=== PATIENT | male | born 1965 | race Caucasian/White ===

== ENCOUNTER → 2016-10-27 | Outpatient (CLI) | payer OTHER | LOC: BMCIMAGING 15:34 | PROVIDERS: ATTEND Emergency Medicine | DX: M79.662 Pain in left lower leg (principal) ==

== ENCOUNTER 2017-01-23 12:49 | Emergency (ER) | payer OTHER ==
[2017-01-23 13:00] VITALS: RESP 18; TEMP 98.1
[2017-01-23] MEDS ORDERED: TDAP ADULT 0.5 ML INJ (BOOSTRIX) IM ONE (13:13)
--- NOTE | 2017-01-23 13:30 | EDPHY ---
General Narrative: CHIEF COMPLAINT: Forehead laceration HISTORY OF PRESENT ILLNESS: Patient complains of laceration to the forehead. He sustained this at 10:45 a.m. this morning. He was exercising when he leaned forward and struck his head on the end of the barbell. He sustained a laceration but no loss of conscious. He has a mild headache. No nausea. No vomiting. No changes in vision. No neck pain or stiffness. He 1st went to an urgent care and they sent him to our facility for higher level of care. Headache is described as mild. No use of anticoagulants. No other associated complaints or modifying factors REVIEW OF SYSTEMS: Ten systems reviewed and are negative unless otherwise noted in the HPI PAST MEDICAL HISTORY: None PAST SURGICAL HISTORY: Right knee arthroplasty SOCIAL HISTORY: Nonsmoker. No alcohol. Lives in [place]. 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 3 cm laceration on the forehead at the started the hairline. No active bleeding. No Ellis sign. No raccoon eyes. No hematoma or depression Eyes: Pupils equal and round, no conjunctival pallor or injection. EOMs intact ENT, Mouth: Mucous membranes moist. Airway patent Neck: Normal inspection, supple, non-tender Respiratory: Lungs are clear. No retractions or distress Cardiovascular: Regular rate. Pulses intact distally symmetrically Neurological: GCS 15. A&O, nonfocal, normal gait. Strength is symmetric in all 4 limbs. No pronator drift. No dysmetria. Full control and movement of the eyebrows and forehead. Skin: Warm and dry, no rash. 3 cm laceration to the forehead. This is just at the start of the hairline. No foreign body. No pulsatile blood flow. Extremities: Nontender, no pedal edema. Symmetric range of motion Psychiatric: Mood and affect normal DIFFERENTIAL DIAGNOSES: Including but not limited to for laceration, closed head injury, concussion, contusion, hematoma, intracranial hemorrhage MDM: 1:25 p.m. For laceration without any indication for CT scan of the head based on [place] CT head rules. He is awake alert no acute distress. Neuro exam is within normal limits. I have anesthetize the wound. Proceed with irrigation and closure. Tetanus will need to be updated here. 1:50 p.m. Laceration has been suture repaired. Movement of the eyebrow retain. Uncomplicated suture with no indication for CT scan. Wound care discussed. Follow up here in 5-7 days for suture removal. PROCEDURE: Laceration repair Consent: Verbal Location: Forehead Length of repair: 3 cm Complexity: Simple Layer involvement: Single Anesthesia: Local. 1% lidocaine with epinephrine. 7 mL Irrigation: Extensive Debridement: None Procedure description: Following good anesthesia, the wound was copiously irrigated. Wound bed was explored and there is no foreign body noted. No involvement of the galea. Wound borders were approximated well with good hemostasis. Tolerated well without complication. Suture/Staple material: 6-0 Prolene, 5 simple interrupted sutures Wound care: Routine as discussed Suture/Staple removal: 5-7 Days - History Smoking Status: Never smoked - Objective Vital Signs: Initial Vital Signs Temperature (C) 98.1 F 01/23/17 12:55 Heart Rate 65 01/23/17 12:55 Respiratory Rate 18 01/23/17 12:55 Blood Pressure 116/81 H 01/23/17 12:55 O2 Sat (%) 98 01/23/17 12:55 O2 Delivery Mode Room Air Allergies/Adverse Reactions: No Known Allergies Allergy (Unverified 01/23/17 12:55) Home Medications: Medication Instructions Recorded NK [No Known Home Meds] 01/23/17 Departure - Departure Disposition: Home, Routine, Self-Care Clinical Impression: Laceration of forehead without complication Qualifiers: Encounter type: initial encounter Qualified Code(s): S01.81XA - Laceration without foreign body of other part of head, initial encounter Closed head injury Qualifiers: Encounter type: initial encounter Qualified Code(s): S09.90XA - Unspecified injury of head, initial encounter Condition: Good Instructions: Care For Your Stitches (ED), Laceration (ED), Head Injury (ED) Additional Instructions: 1. Daily wound care as discussed 2. Suture removal in 5-7 days 3. ED precautions for head injury as discussed Referrals: NONE *PRIMARY CARE P,. [Primary Care Provider] - As per Instructions Slava Wilks MD [[facility] Primary Care Provider] - As per Instructions
[2017-01-23 14:23] VITALS: BP 107/77; PULSE 71; O2SAT 96
== END 2017-01-23 14:21 | disposition home or self-care (01) ==
PROC: 0HQ1XZZ Repair Face Skin, External Approach (ICD-10-PCS; principal; 2017-01-23)
DX: S01.81XA Laceration without foreign body of other part of head, initial encounter (principal); Z23 Encounter for immunization; W22.8XXA Striking against or struck by other objects, initial encounter; Y99.8 Other external cause status; Y93.B3 Activity, free weights

== ENCOUNTER → 2017-11-05 | Outpatient (CLI) | payer OTHER | LOC: BMCIMAGING 13:38 | PROVIDERS: ATTEND Family Medicine | DX: S69.92XA Unspecified injury of left wrist, hand and finger(s), initial encounter (principal) ==

== ENCOUNTER → 2018-09-08 | Outpatient (CLI) | payer OTHER | LOC: BMCIMAGING 13:00 | PROVIDERS: ATTEND Family Medicine | DX: M53.3 Sacrococcygeal disorders, not elsewhere classified (principal); M54.16 Radiculopathy, lumbar region ==